=== PATIENT | male | born 1970 | race Caucasian/White ===

== ENCOUNTER 2018-12-12 07:17 | Day surgery (SDC) | payer BC ==
[~2018-12-12 07:17] MED LIST: Midazolam 1 MG/ML 2 ML SDV ONE; Propofol 200 MG/20 ML SDV ONE; fentaNYL 100 MCG/2 ML SDV ONE
[2018-12-12] MEDS ORDERED: Dextrose 5%-Lactated Ringers 1,000 ML IV SCH (07:45)
[2018-12-12] MEDS ORDERED: Glycopyrrolate 0.2 MG/ML 2 ML SDV IVPUSH ONE (08:30)
[2018-12-12 10:47] VITALS: BP 113/81; PULSE 66
--- NOTE | 2018-12-17 14:01 | OR ---
DATE OF PROCEDURE: 12/12/2018 SURGEON: Regino Miramontes MD PREOPERATIVE DIAGNOSIS: Recurrent gastroesophageal reflux disease, status post previous Callie procedure. POSTOPERATIVE DIAGNOSIS: Recurrent gastroesophageal reflux disease, status post previous Callie procedure. OPERATIVE PROCEDURES: Upper gastrointestinal endoscopy with biopsies of the esophagogastric junction. ANESTHESIA: IV sedation. INDICATIONS FOR PROCEDURE: This is a 48-year-old status post a Callie procedure around 2003. He had done well until recently. He is now developing increasing reflux symptoms, as well as some sense of dysphagia that he had prior to the Callie procedure. At present, he is not on any medical management. The plan is to proceed with an upper GI endoscopy with biopsies as indicated. Potential risks, including bleeding and perforation, were discussed, and the patient wishes to proceed. DETAILS OF PROCEDURE: The patient was taken to the operating room and placed in a left lateral decubitus position. IV sedation was administered, after which the upper GI endoscope was passed orally through the length of the esophagus and into the stomach with retroflexion view of the fundus and thereafter through the pyloric channel and into the proximal duodenum. Findings included some mild redness of the hypopharynx and larynx. The upper esophageal sphincter and esophageal body were unremarkable. The patient did have some active gastroesophageal reflux disease with some in the upper extent of the gastroesophageal junction mucosal lining above the upper gastric folds, as well as 2 small islands of columnar-type mucosa identified in that area. The patient did have a minimal recurrent hiatal hernia, but the esophagogastric junction now is wide open with air insufflation and being viewed from the distal esophagus down towards the stomach. As one passed into the stomach, retroflexion revealed a small ridge of remaining fundoplication-type finding, but smaller than what we typically see. Overall, it appeared that the patient's Callie, at this point, was loosening up quite a bit, allowing recurrent reflux symptoms. There was no stricturing or gross evidence of neoplasia. The remainder of the stomach, pyloric channel, and duodenum to the junction of the third and fourth portions were unremarkable. At this point, biopsies were obtained from the esophagogastric junction and sent for histologic evaluation. Minimal bleeding from the biopsy site was seen, and the procedure was then concluded. We will begin the patient on Protonix 40 mg a day and see how he does with regard to his symptoms, and over time, we will decide whether to proceed with a Callie fundoplication versus medical management. Regino Miramontes MD /[id number]
== END 2018-12-12 10:40 | disposition home or self-care (01) ==
LOC: JP.SDS 07:17
PROVIDERS: ATTEND Surgery
DX: K21.0 Gastro-esophageal reflux disease with esophagitis (principal); K91.89 Other postprocedural complications and disorders of digestive system; K22.70 Barrett's esophagus without dysplasia; K44.9 Diaphragmatic hernia without obstruction or gangrene; J38.7 Other diseases of larynx; J39.2 Other diseases of pharynx; Z98.890 Other specified postprocedural states
CPT/HCPCS: 43239; 88305; J2250; J2704; J3010; J3490; J7042